=== PATIENT | male | born 1950 | race Caucasian/White ===

== ENCOUNTER 2017-12-19 07:41 | Day surgery (SDC) | payer MEDICARE, OTHER ==
[~2017-12-19] VITALS: Ht 182.9 cm; Wt 86.8 kg
[~2017-12-19 07:41] MED LIST: FISH OIL 1,0001 EAC1; LYCOPENE10 MG; Lutein6 MG; POMEGRANATE250 MG; TIZANIDINE HCL2 MG; UBID10; ZEAXANTHIN100 GM
== END 2017-12-19 09:49 | disposition home or self-care (01) ==
LOC: ORSCSDS 07:41
PROVIDERS: Internal Medicine Gastroenterology
PROC: 0DBL8ZX Excision of Transverse Colon, Via Natural or Artificial Opening Endoscopic, Diagnostic (ICD-10-PCS; principal; 2017-12-19 09:00)
PROC: 0DBM8ZX Excision of Descending Colon, Via Natural or Artificial Opening Endoscopic, Diagnostic (ICD-10-PCS; principal; 2017-12-19 09:00)
DX: Z12.11 Encounter for screening for malignant neoplasm of colon (principal); D12.4 Benign neoplasm of descending colon; D12.3 Benign neoplasm of transverse colon; K57.30 Diverticulosis of large intestine without perforation or abscess without bleeding; Z83.71 Family history of colonic polyps; Z87.891 Personal history of nicotine dependence; Z79.899 Other long term (current) drug therapy
CPT/HCPCS: 88305; J0330; J1980; J2405; J7120

== ENCOUNTER 2022-11-30 06:23 | Day surgery (SDC) | payer MEDICARE, OTHER ==
[~2022-11-30] VITALS: Ht 182.9 cm; Wt 92.4 kg
[2022-11-30] MEDS ORDERED: Amlodipine Bes2.5 MG PO (07:02)
[2022-11-30] MEDS ORDERED: IRBE150 (07:02)
[2022-11-30 08:33] VITALS: BP 118/62
--- NOTE | 2022-11-30 08:50 | NUR ---
[facility]30/22 0850 [facility]
== END 2022-11-30 08:50 | disposition home or self-care (01) ==
LOC: ORSCSDS 06:23
PROVIDERS: Student in an Organized Health Care Education/Training Program
PROC: 08DJ3ZZ Extraction of Right Lens, Percutaneous Approach (ICD-10-PCS; principal; 2022-11-30 08:00)
DX: H25.13 Age-related nuclear cataract, bilateral (principal); I10 Essential (primary) hypertension; Z79.899 Other long term (current) drug therapy
CPT/HCPCS: J1100; J2250; J2405; J3010; J7040; V2632

== ENCOUNTER 2022-12-28 06:36 | Day surgery (SDC) | payer MEDICARE, OTHER ==
[~2022-12-28] VITALS: Ht 182.9 cm; Wt 93.3 kg
[~2022-12-28 06:36] MED LIST changes: +Amlodipine Bes2.5 MG PO; +IRBE150
--- NOTE | 2022-12-28 07:02 | NUR ---
12/28/22 0702 Melinda Bartholomew TETRACAINE TO THE L EYE AT 0654, PLEDGET PLACED IN L EYE AT 0658
[2022-12-28 08:26] VITALS: BP 122/66
--- NOTE | 2022-12-28 08:35 | NUR ---
12/28/22 0835 [facility] IV REMOVED INTACT. SITE WNL.
== END 2022-12-28 08:44 | disposition home or self-care (01) ==
LOC: ORSCSDS 06:36
PROVIDERS: Student in an Organized Health Care Education/Training Program
PROC: 08DK3ZZ Extraction of Left Lens, Percutaneous Approach (ICD-10-PCS; principal; 2022-12-28 08:00)
DX: H25.12 Age-related nuclear cataract, left eye (principal); Z96.1 Presence of intraocular lens; I10 Essential (primary) hypertension; Z79.899 Other long term (current) drug therapy
CPT/HCPCS: J2001; J2250; J3010; J3301; J7040; V2632

== ENCOUNTER 2023-01-12 13:36 | Day surgery (SDC) | payer MEDICARE, OTHER ==
[~2023-01-12] VITALS: Ht 182.9 cm; Wt 90.0 kg
[2023-01-12 16:17] VITALS: BP 108/65
== END 2023-01-12 15:55 | disposition home or self-care (01) ==
LOC: ORSCSDS 13:36
PROVIDERS: Internal Medicine Gastroenterology
PROC: 0DBM8ZX Excision of Descending Colon, Via Natural or Artificial Opening Endoscopic, Diagnostic (ICD-10-PCS; principal; 2023-01-12 15:00)
PROC: 0DBH8ZX Excision of Cecum, Via Natural or Artificial Opening Endoscopic, Diagnostic (ICD-10-PCS; principal; 2023-01-12 15:00)
DX: Z12.11 Encounter for screening for malignant neoplasm of colon (principal); Z86.010 Personal history of colon polyps; D12.0 Benign neoplasm of cecum; D12.4 Benign neoplasm of descending colon; K57.30 Diverticulosis of large intestine without perforation or abscess without bleeding; Z83.71 Family history of colonic polyps; Z87.891 Personal history of nicotine dependence; Z79.899 Other long term (current) drug therapy
CPT/HCPCS: 88305; J0461; J2001; J2405; J2704; J7120; Q9968

== ENCOUNTER 2023-12-22 03:10 | Observation (INO) | payer MEDICARE, OTHER ==
[~2023-12-22] VITALS: Ht 182.9 cm; Wt 93.1 kg
[~2023-12-22 03:10] MED LIST changes: -IRBE150; +IRBE150 PO
[2023-12-22 03:43] LABS: BASOPHILS ABSOLUTE AUTO 0.02 K/mm3 (0.00-0.23); BASOPHILS PERCENT AUTO 0 % (0-2); EOSINOPHILS ABSOLUTE AUTO 0.14 K/mm3 (0.00-0.68); EOSINOPHILS PERCENT AUTO 3 % (0-6); Hematocrit 37.6 % (37.0-53.0); Hemoglobin 12.8 g/dL (13.5-17.5); IMMATURE GRAN ABSOLUTE AUTO 0.01 K/mm3 (0.00-0.10); IMMATURE GRAN PERCENT AUTO 0 % (0-1); LYMPHOCYTES ABSOLUTE AUTO 2.51 K/mm3 (0.84-5.20); LYMPHOCYTES PERCENT AUTO 45 % (21-46); MONOCYTES ABSOLUTE AUTO 0.62 K/mm3 (0.16-1.47); MONOCYTES PERCENT AUTO 11 % (4-13); Mean Corpuscular HGB 30.8 pg (26.0-34.0); Mean Corpuscular Volume 91 fL (80-100); Mean Platelet Volume 10.2 fL (9.1-12.4); NEUTROPHILS ABSOLUTE AUTO 2.28 K/mm3 (1.96-9.15); NEUTROPHILS PERCENT AUTO 41 % (41-73); Platelet Count 210 K/mm3 (150-400); RDW Standard Deviation 43.5 fL (35.1-46.3); Red Blood Cell Count 4.15 M/mm3 (4.30-5.90); White Blood Cell Count 5.58 K/mm3 (4.00-11.30)
[2023-12-22] MEDS ORDERED: AMLODIPINE BESYL5 MG PO (03:54)
[2023-12-22] MEDS ORDERED: DYAZIDE 37.5-21 EACH PO (03:56)
[2023-12-22 03:59] LABS: Albumin, Blood 3.8 g/dL (3.4-5.0); Bilirubin, Total 0.8 mg/dL (0.1-1.0); Bun/Creatinine Ratio 22.9 (12.0-20.0); Calcium, Blood 8.7 mg/dL (8.5-10.1); Creatinine, Blood 1.18 mg/dL (0.60-1.20); Globulin, Blood 3.9 g/dL (2.2-4.0); Total Protein, Blood 7.7 g/dL (6.4-8.2)
[2023-12-22] MEDS ORDERED: Aspirin 81 MG Chew PO ONE (07:05)
[2023-12-22] MEDS ORDERED: Nitroglycerin 0.4 MG SUBL SL ONE (07:05)
[2023-12-22 08:47] VITALS: BP 105/57
[2023-12-22] MEDS ORDERED: Regadenoson 0.4 MG/5 ML SYRINGE ONE (10:54)
[2023-12-22] MEDS ORDERED: Aminophylline 250MG / 10ML 10 ML Vial ONE (10:54)
[2023-12-22 15:24] VITALS: BP 111/62
[2023-12-23] MEDS ORDERED: Enoxaparin 40 MG/0.4 ML SYR SC SCH (09:00)
== END 2023-12-22 16:36 | disposition home or self-care (01) ==
LOC: ER 03:10 → MEDS 03:11
PROVIDERS: Emergency Medicine; ADMIT Family Medicine
DX: I71.20 Thoracic aortic aneurysm, without rupture, unspecified (principal); I35.1 Nonrheumatic aortic (valve) insufficiency; Q21.10 Atrial septal defect, unspecified; I10 Essential (primary) hypertension; Z87.891 Personal history of nicotine dependence; Z88.5 Allergy status to narcotic agent; Z88.8 Allergy status to other drugs, medicaments and biological substances; Z79.899 Other long term (current) drug therapy
CPT/HCPCS: 71046; 71275; 78452; 80053; 83880; 84484; 85025; 93005; 93010; 93017; 99285-25; A9270; A9500; G0378; J0280; J2785; Q9967

== ENCOUNTER 2024-07-10 22:18 | Emergency (ER) | payer MEDICARE, OTHER ==
[~2024-07-10] VITALS: Ht 182.9 cm; Wt 86.2 kg
[~2024-07-10 22:18] MED LIST changes: +AMLODIPINE BESYL5 MG PO; +DYAZIDE 37.5-21 EACH PO
[2024-07-11 00:16] VITALS: BP 119/72
[2024-07-11] MEDS ORDERED: Fluticasone 0.05% Nasal Spray SCH (01:30)
== END 2024-07-11 02:30 | disposition home or self-care (01) ==
LOC: ER 22:18
DX: R04.0 Epistaxis (principal); Z87.891 Personal history of nicotine dependence; Z79.899 Other long term (current) drug therapy; Z88.5 Allergy status to narcotic agent; Z88.8 Allergy status to other drugs, medicaments and biological substances
CPT/HCPCS: 99283; A9270

== ENCOUNTER 2025-02-18 15:18 | Emergency (ER) | payer MEDICARE, OTHER ==
[~2025-02-18] VITALS: Ht 182.9 cm; Wt 93.0 kg
[2025-02-18 16:09] LABS: BASOPHILS ABSOLUTE AUTO 0.03 K/mm3 (0.00-0.23); BASOPHILS PERCENT AUTO 0 % (0-2); EOSINOPHILS ABSOLUTE AUTO 0.04 K/mm3 (0.00-0.68); EOSINOPHILS PERCENT AUTO 0 % (0-6); Hematocrit 35.9 % (37.0-53.0); Hemoglobin 12.5 g/dL (13.5-17.5); IMMATURE GRAN ABSOLUTE AUTO 0.02 K/mm3 (0.00-0.10); IMMATURE GRAN PERCENT AUTO 0 % (0-1); LYMPHOCYTES ABSOLUTE AUTO 1.23 K/mm3 (0.84-5.20); LYMPHOCYTES PERCENT AUTO 12 % (21-46); MONOCYTES ABSOLUTE AUTO 0.76 K/mm3 (0.16-1.47); MONOCYTES PERCENT AUTO 7 % (4-13); Mean Corpuscular HGB Conc 34.8 g/dL (31.5-36.5); Mean Corpuscular Volume 92 fL (80-100); NEUTROPHILS ABSOLUTE AUTO 8.57 K/mm3 (1.96-9.15); NEUTROPHILS PERCENT AUTO 81 % (41-73); NRBC ABSOLUTE 0.00 K/mm3 (0.00-0.02); NRBC Auto 0.0 /100 WBC (0.0-0.2); Platelet Count 205 K/mm3 (150-400); RDW Coefficient Variation 12.8 % (11.7-14.2); RDW Standard Deviation 43.2 fL (35.1-46.3)
[2025-02-18 16:24] LABS: Alanine Aminotransfer (ALT/SGP 34.0 U/L (12-78); Albumin, Blood 4.0 g/dL (3.4-5.0); Albumin/Globulin Ratio 1.0 (0.8-1.8); Anion Gap 8.0 mmol/L (3-11); Aspartate Aminotrans (AST/SGOT 22.0 U/L (12-37); Bilirubin, Total 1.2 mg/dL (0.1-1.0); Blood Urea Nitrogen 32.0 mg/dL (8-24); CO2, Blood 28.0 mmol/L (21-32); Calcium, Blood 9.2 mg/dL (8.5-10.1); Chloride, Blood 103.0 mmol/L (98-108); Creatinine, Blood 1.54 mg/dL (0.60-1.20); Globulin, Blood 4.0 g/dL (2.2-4.0); Glucose, Blood 126.0 mg/dL (70-99); Potassium, Blood 4.3 mmol/L (3.5-5.5); Sodium, Blood 135.0 mmol/L (136-145); Total Protein, Blood 8.0 g/dL (6.4-8.2)
[2025-02-18] MEDS ORDERED: NS 1,000 ML IV SCH (18:55)
[2025-02-18 20:00] VITALS: BP 117/65
== END 2025-02-18 20:35 | disposition home or self-care (01) ==
LOC: ER 15:18
PROVIDERS: Student in an Organized Health Care Education/Training Program
DX: R07.89 Other chest pain (principal); Z88.8 Allergy status to other drugs, medicaments and biological substances; Z88.5 Allergy status to narcotic agent; Z87.891 Personal history of nicotine dependence; R79.89 Other specified abnormal findings of blood chemistry
CPT/HCPCS: 71275; 80053; 83690; 84484; 85025; 93005; 93010; 96360-59; 99285-25; A9270; J7030; Q9967